=== PATIENT | male | born 1990 | race Caucasian/White ===

== ENCOUNTER 2016-08-08 15:51 | Emergency (ER) | payer SELFPAY ==
[~2016-08-08] VITALS: Ht 182.9 cm; Wt 72.6 kg
[2016-08-08 16:06] VITALS: BP 109/71
[2016-08-08] MEDS ORDERED: KETOROLAC TROMETH 60MG/2ML VIAL IM ONE (18:15)
== END 2016-08-08 18:52 | disposition home or self-care (01) ==
LOC: ER 16:00
DX: R51 Headache (principal); Y99.8 Other external cause status; Y93.89 Activity, other specified; V49.59XA Passenger injured in collision with other motor vehicles in traffic accident, initial encounter; Y92.488 Other paved roadways as the place of occurrence of the external cause
CPT/HCPCS: 96372; 99283; J1885

== ENCOUNTER 2018-11-11 07:02 | Emergency (ER) | payer MEDICAID ==
[~2018-11-11] VITALS: Ht 182.9 cm; Wt 72.6 kg
[2018-11-11 07:33] VITALS: BP 155/64
[2018-11-11] MEDS ORDERED: cefTRIAXone SOD 1,000 MG VL IM ONE (08:00)
[2018-11-11] MEDS ORDERED: IBUPROFEN 800 MG TAB PO ONE (08:00)
[2018-11-11] MEDS ORDERED: IOHEXOL 300 MG/ML 100ML BOTTLE IJ ONE (08:14)
[2018-11-11 08:22] LABS: Basophils # (auto) 0.1 uL; Basophils % (auto) 0.9 % (0.0-2.0); Eosinophils # (auto) 0 uL; Eosinophils % (auto) 0.3 % (0.0-7.0); Hematocrit 40.6 % (41.0-53.0); Hemoglobin 14.5 g/dL (13.5-17.5); Lymphocytes # (auto) 2.4 uL; Lymphocytes % (auto) 16.5 % (10.0-50.0); Mean Corpuscular Hemoglobin 32.5 pg (28.0-32.0); Mean Corpuscular Hgb Conc. 35.7 g/dL (32.0-36.0); Mean Corpuscular Volume 90.9 fL (80.0-100.0); Monocytes # (auto) 1.6 uL; Monocytes % (auto) 10.8 % (0.0-12.0); Neutrophils # (auto) 10.4 uL; Neutrophils % (auto) 71.5 % (37.0-80.0); Platelet Count (auto) 251 10^3/uL (140-450); Red Blood Cells 4.47 10^6/uL (4.5-5.90); Red Cell Distribution Width 13.6 % (11.8-14.3); White Blood Cell 14.6 10^3/uL (4.4-10.8)
[2018-11-11] MEDS ORDERED: SODIUM CHLORIDE 0.9% 1,000 ML IV ONE (08:30)
[2018-11-11 08:40] LABS: Potassium 3.4 mmol/L (3.5-5.1)
[2018-11-11 08:41] LABS: Albumin 3.7 g/dL (3.4-5.0); Calcium 8.9 mg/dL (8.5-10.1)
[2018-11-11 08:44] LABS: Bilirubin, Total 0.7 mg/dL (0.2-1.0); Total Protein 7.5 g/dL (6.4-8.2)
[2018-11-11] MEDS ORDERED: methylPREDNISolone SOD SUCC 125 MG/2 ML VL IV ONE (09:00)
== END 2018-11-11 10:10 | disposition home or self-care (01) ==
LOC: ER 07:02
DX: K05.6 Periodontal disease, unspecified (principal); R59.1 Generalized enlarged lymph nodes; F17.210 Nicotine dependence, cigarettes, uncomplicated; F12.90 Cannabis use, unspecified, uncomplicated
CPT/HCPCS: 36415; 70491; 80053; 85025; 96372; 96374; 99284; J0696; J2930; J7030; Q9967